=== PATIENT | male | born 1960 | race Caucasian/White ===

== ENCOUNTER 2019-02-04 20:01 | Inpatient (IN) | payer OTHER ==
[~2019-02-04] VITALS: Ht 177.8 cm; Wt 80.4 kg
[2019-02-04] MEDS ORDERED: THIAMINE 100MG TABLET PO ONE (20:30)
[2019-02-04] MEDS ORDERED: PLEASE ENTER ALLERGIES MC SCH (20:30)
[2019-02-04] MEDS ORDERED: LORazepam 2 MG/ML, 1ML IVPush ONE (20:30)
[2019-02-04] MEDS ORDERED: MECLIZINE CHEWABLE 25 MG TAB PO ONE (20:30)
--- NOTE | 2019-02-04 20:32 | NUR ---
CAITLIN. REPORT RECEIVED FROM EMS. PT HAD GLF D/T ETOH AT [facility] TODAY. NO LOC, PAIN, TRAUMA. PT C/O N/V/DZY. LAST DRINK 02/03 20PM. PT'S AOX4. RESPS EVEN AND UNLABORED. ALL MONITORS IN PLACE. CALL LIGHT WITHIN REACH. EKG DONE AT BEDSIDE BY EMT. PA AT BEDSIDE TO ASSESS.
[2019-02-04] MEDS ORDERED: MECLIZINE CHEWABLE 25 MG TAB ONE (20:38)
[2019-02-04] MEDS ORDERED: THIAMINE 100MG TABLET ONE (20:38)
[2019-02-04] MEDS ORDERED: LORazepam 2 MG/ML, 1ML ONE (20:39)
[2019-02-04 20:44] LABS: BASOPHILS # (AUTO) 0.03 x10^3/uL (0-0.1); BASOPHILS % (AUTO) 0 % (0-1); EOSINOPHILS # (AUTO) 0.01 x10^3/uL (0-0.4); EOSINOPHILS % (AUTO) 0 % (1-7); LYMPHOCYTES % (AUTO) 8 % (22-44); MD NO; MEAN CORPUSCULAR HEMOGLOBIN 33.5 pg (27.5-34.5); MEAN CORPUSCULAR HGB CONC 33.7 g/dL (33.2-36.2); MEAN CORPUSCULAR VOLUME 99.5 fL (81-97); MEAN PLATELET VOLUME 7.3 fL (7.4-10.4); MONOCYTES # (AUTO) 0.34 x10^3/uL (0.2-0.8); MONOCYTES % (AUTO) 5 % (2-9); NEUTROPHILS # (AUTO) 6.44 x10^3/uL (1.8-6.8); NEUTROPHILS % (AUTO) 87 % (42-75); PLATELET COUNT 168 x10^3/uL (130-400); RED BLOOD COUNT 4.41 x10^6/uL (4.38-5.82)
--- NOTE | 2019-02-04 20:47 | NUR ---
PT MEDICATED PER EMAR. PT TOLERATED WELL. PT'S AOX4. RESPS EVEN AND UNLABORED.
[2019-02-04 20:54] LABS: ALANINE AMINOTRANSFERASE 48 U/L (12-78); ALBUMIN 3.5 g/dL (3.4-5.0); ANION GAP 8 mmol/L (5-15); CALCIUM 8.3 mg/dL (8.5-10.1); CHLORIDE 107 mmol/L (98-107); CREATININE 0.84 mg/dL (0.7-1.3)
[2019-02-04 20:59] LABS: ALKALINE PHOSPHATASE 104 U/L (45-117); BILIRUBIN,TOTAL 2.5 mg/dL (0.2-1.0); TOTAL PROTEIN 6.8 g/dL (6.4-8.2); TROPONIN I < 0.015 ng/mL (0.000-0.045)
--- NOTE | 2019-02-04 21:20 | NUR ---
PT IN US NOW.
--- NOTE | 2019-02-04 21:51 | NUR ---
PT BACK TO ROOM FROM US.
--- NOTE | 2019-02-04 22:23 | NUR ---
pt was not able to amb at this time. pa/edmd notified.
--- NOTE | 2019-02-04 22:29 | NUR ---
report given to corey chicas. all questions answered.
[2019-02-04] MEDS ORDERED: DIAZEPAM 5 MG/ML, 10ML VIAL IV ONE (22:30)
[2019-02-04] MEDS ORDERED: ONDANSETRON 2MG/ML, 2ML IVPush PRN (23:00)
[2019-02-04] MEDS ORDERED: hydrALAzine 20 MG/ML, 1ML IVPush PRN (23:00)
[2019-02-04] MEDS ORDERED: POLYETHYLENE GLYCOL 17 GM PACKET PO PRN (23:00)
[2019-02-04] MEDS: ENOXAPARIN 40 MG/0.4 ML SQ SCH (23:14)
[2019-02-05 00:40] VITALS: BP 152/89
[2019-02-05 02:04] VITALS: BP 136/92
[2019-02-05 04:11] LABS: BASOPHILS # (AUTO) 0.03 x10^3/uL (0-0.1); BASOPHILS % (AUTO) 0 % (0-1); EOSINOPHILS % (AUTO) 1 % (1-7); LYMPHOCYTES # (AUTO) 1.81 x10^3/uL (1-3.4); LYMPHOCYTES % (AUTO) 23 % (22-44); MD NO; MEAN CORPUSCULAR HGB CONC 34.7 g/dL (33.2-36.2); MEAN CORPUSCULAR VOLUME 98.2 fL (81-97); MEAN PLATELET VOLUME 7.6 fL (7.4-10.4); MONOCYTES # (AUTO) 0.71 x10^3/uL (0.2-0.8); MONOCYTES % (AUTO) 9 % (2-9); NEUTROPHILS # (AUTO) 5.26 x10^3/uL (1.8-6.8); NEUTROPHILS % (AUTO) 67 % (42-75); PLATELET COUNT 163 x10^3/uL (130-400); RED BLOOD COUNT 4.24 x10^6/uL (4.38-5.82); RED CELL DISTRIBUTION WIDTH 12.3 % (9.4-14.8)
[2019-02-05 04:18] LABS: ALBUMIN 3.5 g/dL (3.4-5.0); ANION GAP 7 mmol/L (5-15); CALCIUM 8.6 mg/dL (8.5-10.1); CHLORIDE 105 mmol/L (98-107)
[2019-02-05 04:22] LABS: ALANINE AMINOTRANSFERASE 44 U/L (12-78); ALKALINE PHOSPHATASE 98 U/L (45-117); BILIRUBIN,TOTAL 2.7 mg/dL (0.2-1.0); CREATININE 0.79 mg/dL (0.7-1.3); TOTAL PROTEIN 6.5 g/dL (6.4-8.2)
[2019-02-05] MEDS: FOLIC ACID 1 MG TABLET PO SCH (09:45)
[2019-02-05] MEDS: MULTIVITAMIN 1 TABLET PO SCH (09:45)
[2019-02-05] MEDS: MECLIZINE CHEWABLE 25 MG TAB PO SCH ×3 (09:45→21:41)
[2019-02-05] MEDS: THIAMINE 100MG TABLET PO SCH (09:45)
[2019-02-05] MEDS: LORazepam 1MG TABLET PO PRN ×2 (09:50→11:53)
[2019-02-05 13:19] VITALS: BP 117/78
[2019-02-05 15:11] LABS: CHOL/HDL RATIO 3.5; LDL/HDL RATIO 2.1 (0.5-3.0)
[2019-02-05 19:07] VITALS: BP 128/85
[2019-02-05] MEDS: ENOXAPARIN 40 MG/0.4 ML SQ SCH (21:42)
[2019-02-06 01:43] VITALS: BP 124/86
[2019-02-06 07:05] VITALS: BP 123/85
[2019-02-06] MEDS: THIAMINE 100MG TABLET PO SCH (08:35)
[2019-02-06] MEDS: FOLIC ACID 1 MG TABLET PO SCH (08:35)
[2019-02-06] MEDS: MULTIVITAMIN 1 TABLET PO SCH (08:35)
[2019-02-06] MEDS: MECLIZINE CHEWABLE 25 MG TAB PO SCH (08:35)
[2019-02-06] MEDS ORDERED: MULT1TAB60 PO (13:05)
[2019-02-06] MEDS ORDERED: FOLI-17 PO (13:05)
[2019-02-06] MEDS ORDERED: THIA100T67 PO (13:05)
[2019-02-06] MEDS ORDERED: MECL12.52 PO (13:05)
[2019-02-06 13:16] VITALS: BP 121/85
== END 2019-02-06 14:40 | disposition home or self-care (01) | DRG 149 ==
LOC: ED 22:10 → EDIP 22:16 → ED 22:21 → 4WST 22:44
PROVIDERS: ADMIT Family Medicine; ATTEND Family Medicine
DX: H81.10 Benign paroxysmal vertigo, unspecified ear (principal); F10.231 Alcohol dependence with withdrawal delirium; F17.200 Nicotine dependence, unspecified, uncomplicated; I10 Essential (primary) hypertension
CPT/HCPCS: 36415; 70450; 70553; 71045; 76700; 80053; 80061; 83690; 84484; 85025; 93005; G0378; J1650; J3360; J2060